=== PATIENT | female | born 1990 | race Caucasian/White ===

== ENCOUNTER 2017-04-28 22:53 | Emergency (ER) | payer BC, OTHER ==
[2017-04-28] MEDS ORDERED: SODIUM CHLORIDE 0.9% 500 ML IV STA (23:10)
[2017-04-28 23:29] LABS: Basophils # (A) 0.1 k/uL (0-0.2); Basophils % (A) 1 %; CH 31.8; CHCM 34.7; Eosinophils # (A) 0.1 k/uL (0-0.7); Eosinophils % (A) 1 %; HCT 42.3 % (34.0-46.0); HDW 2.64; HGB 14.4 gm/dL (11.4-16.0); Luc # (Auto) 0.15; Luc % (Auto) 2; Lymphocytes # (A) 3.2 k/uL (1.0-4.8); Lymphocytes % (A) 41 %; MCH 31.3 pg (25.0-35.0); MCV 91.9 fL (80.0-100.0); Monocytes # (A) 0.3 k/uL (0-1.0); Monocytes % (A) 4 %; Neutrophils # (A) 3.9 k/uL (1.3-7.7); Neutrophils % (A) 51 %; RDW 13.1 % (11.5-15.5); WBC 7.7 k/uL (3.8-10.6); WBC (Perox) 7.29
[2017-04-28 23:34] LABS: ALT 42 U/L (9-52); AST 29 U/L (14-36); Alkaline Phosphatase 105 U/L (38-126); Anion Gap 13 mmol/L; Blood Urea Nitrogen 10 mg/dL (7-17); Calcium 9.5 mg/dL (8.4-10.2); Carbon Dioxide 20 mmol/L (22-30); Chloride 107 mmol/L (98-107); Glucose 94 mg/dL (74-99); Non-African American GFR(MDRD) >60 (>60 ml/min/1.73 sqM); Potassium 4.3 mmol/L (3.5-5.1); Sodium 140 mmol/L (137-145); Total Bilirubin 0.5 mg/dL (0.2-1.3)
[2017-04-28 23:35] LABS: Partial Thromboplastin Time 26.6 sec (22.0-30.0); Prothrombin Time 10.5 sec (9.0-12.0)
[2017-04-28 23:42] LABS: Creatine Kinase 118 U/L (30-135)
[2017-04-28 23:56] LABS: Creatine Kinase MB 1.3 ng/mL (0.0-2.4); Troponin I <0.012 ng/mL (0.000-0.034)
--- NOTE | 2017-04-29 00:05 | ED ---
General Adult HPI - General Chief complaint: Chest Pain Stated complaint: Chest Pain Time Seen by Provider: 04/28/17 22:57 Source: patient, EMS Mode of arrival: EMS Limitations: no limitations - History of Present Illness Initial comments: 26-year-old female patient presents to emergency department today with complaints of shortness of breath, chest pressure, and vaginal bleeding. Patient is postop day #12 after having a delivery. Patient states that up until today she has been having dark red to brown vaginal discharge. She states today the bleeding has been bright red, states that just prior to arrival she did have a large gush of blood with some clots present in the toilet. Patient states that she is unchanged her pad 3 times today however. Patient states that shortness of breath started also just prior to arrival around the same time that she had the blood output. Patient denies any significant abdominal pain, states that the surface is tender due to receiving heparin injections. Patient has a factor 5 deficiency. Patient states she has never had blood clots resolve however her close relatives have had numerous blood clots. Patient denies any headache, weakness, dizziness, nausea, vomiting , constipation, diarrhea, dysuria, urinary urgency or urinary frequency. Patient is breast-feeding. Patient denies any concerns with her incision site. Patient denies any foul odor from the vaginal discharge. Denies any fever or chills. - Related Data Home Medications Medication Instructions Recorded Confirmed Acetaminophen Tab [Tylenol Tab] 500 mg PO Q6H PRN 04/28/17 04/28/17 HYDROcodone/APAP 5-325MG [[place] 1 tab PO Q6HR PRN 04/28/17 04/28/17 5-325] Heparin Sodium,Porcine [Heparin 7,500 unit SQ BID 04/28/17 04/28/17 Sodium] Ibuprofen [Motrin] 400 mg PO Q6HR PRN 04/28/17 04/28/17 [id number] Acid 1 cap PO DAILY 04/28/17 04/28/17 [-U Capsule (formulary)] Sertraline [Zoloft] 100 mg PO DAILY 04/28/17 04/28/17 Allergies Allergy/AdvReac Type Severity Reaction Status Date / Time cefaclor [From Ceclor] Allergy Unknown Unknown Verified 04/28/17 23:15 amoxicillin [From Augmentin] Allergy Unknown Verified 04/28/17 22:54 clavulanic acid Allergy Unknown Verified 04/28/17 22:54 [From Augmentin] codeine Allergy Rash/Hives Verified 04/28/17 23:15 morphine Allergy Rash/Hives Verified 04/28/17 23:15 Sulfa (Sulfonamide Allergy Unknown Verified 04/28/17 23:15 Antibiotics) Review of Systems ROS Statement: Those systems with pertinent positive or pertinent negative responses have been documented in the HPI. ROS Other: All systems not noted in ROS Statement are negative. 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 Absent: scleral icterus, conjunctival injection, periorbital swelling ENT exam: Present: normal exam, normal oropharynx, mucous membranes moist Neck exam: Present: normal inspection. Absent: tenderness, meningismus, lymphadenopathy Respiratory exam: Present: normal lung sounds bilaterally, other (Tachypneic). Absent: respiratory distress, wheezes, rales, rhonchi, stridor Cardiovascular Exam: Present: regular rate, normal rhythm, normal heart sounds. Absent: systolic murmur, diastolic murmur, rubs, gallop, clicks GI/Abdominal exam: Present: soft, tenderness (Superficial abdominal tenderness related to a bruised upper and injection sites.), normal bowel sounds. Absent: distended, guarding, rebound, rigid External exam: Present: normal external exam. Absent: erythema, swelling, lesions, lacerations, ecchymosis Speculum exam: Present: normal speculum exam, vaginal bleeding (Dark red vaginal bleeding noted. Clot removed, no fresh bright red blood noted no fresh bleeding from cervical os.). Absent: erythema By manual exam: Present: adnexal tenderness, uterine tenderness. Absent: cervical motion tenderness, adnexal mass, uterine enlargement Extremities exam: Present: normal inspection, full ROM, normal capillary refill. Absent: tenderness, pedal edema, joint swelling, calf tenderness Back exam: Present: normal inspection Neurological exam: Present: alert, oriented X3, CN II-XII intact Psychiatric exam: Present: normal affect, normal mood Skin exam: Present: warm, dry, intact, normal color. Absent: rash Course Vital Signs 04/28/17 04/28/17 22:55 23:49 Temperature 97.9 F Pulse Rate 68 76 Respiratory 22 18 Rate Blood Pressure 129/73 128/70 O2 Sat by Pulse 98 99 Oximetry - Reevaluation(s) Reevaluation #1: 04/29/17 01:23 In to perform pelvic examination and speculum exam. Findings documented in the physical exam. Patient is complaining of pain after the exam. Will order [place]. Awaiting CTA results as well as results of the transvaginal ultrasound. EKG Findings - EKG Comments: EKG Findings:: EKG obtained at 2257 reveals normal sinus rhythm with a ventricular rate of 76, [place] interval 160, Q samaritan 80, QT 356, QTC 400. No evidence of ST elevation or depression. Medical Decision Making - Medical Decision Making 26-year-old female patient presented to emergency department for concerns of shortness of breath, chest pressure, and bright red vaginal bleeding. Blood work was performed and showed no acute abnormalities of the elevated d-dimer. CTA of the chest was performed and did not show any pulmonary embolism or other acute process. Ultrasound of the abdomen and pelvis was performed and did show a thickened endometrium and recommended follow-up in about 6-8 weeks. Pelvic and a speculum exam was performed, cervix was closed with a dark brown blood clot noted, blood clot was removed no fresh bleeding noted. Urine has been sent for culture. Patient's symptoms have improved. Patient will be discharged home to follow up with her primary care physician as well as her OB/ CLINICAL COORDINATOR in 1-2 days for recheck. Patient struck her to return for any new, worsening, or concerning symptoms. Patient verbalizes understanding and agrees with this plan. - Lab Data Result diagrams: 04/28/17 22:57 04/28/17 22:57 Lab Results 04/28/17 04/28/17 04/28/17 Range/Units 22:57 22:57 22:57 WBC 7.7 (3.8-10.6) k/uL RBC 4.60 (3.80-5.40) m/uL Hgb 14.4 (11.4-16.0) gm/dL Hct 42.3 (34.0-46.0) % MCV 91.9 (80.0-100.0) fL MCH 31.3 (25.0-35.0) pg MCHC 34.0 (31.0-37.0) g/dL RDW 13.1 (11.5-15.5) % Plt Count 386 (150-450) k/uL Neutrophils % 51 % Lymphocytes % 41 % Monocytes % 4 % Eosinophils % 1 % Basophils % 1 % Neutrophils # 3.9 (1.3-7.7) k/uL Lymphocytes # 3.2 (1.0-4.8) k/uL Monocytes # 0.3 (0-1.0) k/uL Eosinophils # 0.1 (0-0.7) k/uL Basophils # 0.1 (0-0.2) k/uL PT (9.0-12.0) sec INR (<1.2) APTT (22.0-30.0) sec D-Dimer (<0.60) mg/L FEU Sodium 140 (137-145) mmol/L Potassium 4.3 (3.5-5.1) mmol/L Chloride 107 (98-107) mmol/L Carbon Dioxide 20 L (22-30) mmol/L Anion Gap 13 mmol/L BUN 10 (7-17) mg/dL Creatinine 0.60 (0.52-1.04) mg/dL Est GFR (MDRD) Af Amer >60 (>60 ml/min/1.73 sqM) Est GFR (MDRD) Non-Af >60 (>60 ml/min/1.73 sqM) Glucose 94 (74-99) mg/dL Calcium 9.5 (8.4-10.2) mg/dL Magnesium 2.0 (1.6-2.3) mg/dL Total Bilirubin 0.5 (0.2-1.3) mg/dL AST 29 (14-36) U/L ALT 42 (9-52) U/L Alkaline Phosphatase 105 (38-126) U/L Total Creatine Kinase 118 (30-135) U/L CK-MB (CK-2) 1.3 (0.0-2.4) ng/mL CK-MB (CK-2) Rel Index 1.1 Troponin I <0.012 (0.000-0.034) ng/mL NT-Pro-B Natriuret Pep pg/mL Total Protein 7.0 (6.3-8.2) g/dL Albumin 4.0 (3.5-5.0) g/dL Urine Color Urine Appearance (Clear) Urine pH (5.0-8.0) Ur Specific [place] (1.001-1.035) Urine Protein (Negative) Urine Glucose (UA) (Negative) Urine Ketones (Negative) Urine Blood (Negative) Urine Nitrite (Negative) Urine Bilirubin (Negative) Urine Urobilinogen (<2.0) mg/dL Ur Leukocyte Esterase (Negative) Urine RBC (0-5) /hpf Urine WBC (0-5) /hpf Ur Squamous Epith Cells (0-4) /hpf Urine Mucus (None) /hpf 04/28/17 04/28/17 04/29/17 Range/Units 22:57 22:57 00:32 WBC (3.8-10.6) k/uL RBC (3.80-5.40) m/uL Hgb (11.4-16.0) gm/dL Hct (34.0-46.0) % MCV (80.0-100.0) fL MCH (25.0-35.0) pg MCHC (31.0-37.0) g/dL RDW (11.5-15.5) % Plt Count (150-450) k/uL Neutrophils % % Lymphocytes % % Monocytes % % Eosinophils % % Basophils % % Neutrophils # (1.3-7.7) k/uL Lymphocytes # (1.0-4.8) k/uL Monocytes # (0-1.0) k/uL Eosinophils # (0-0.7) k/uL Basophils # (0-0.2) k/uL PT 10.5 (9.0-12.0) sec INR 1.0 (<1.2) APTT 26.6 (22.0-30.0) sec D-Dimer 2.27 H (<0.60) mg/L FEU Sodium (137-145) mmol/L Potassium (3.5-5.1) mmol/L Chloride (98-107) mmol/L Carbon Dioxide (22-30) mmol/L Anion Gap mmol/L BUN (7-17) mg/dL Creatinine (0.52-1.04) mg/dL Est GFR (MDRD) Af Amer (>60 ml/min/1.73 sqM) Est GFR (MDRD) Non-Af (>60 ml/min/1.73 sqM) Glucose (74-99) mg/dL Calcium (8.4-10.2) mg/dL Magnesium (1.6-2.3) mg/dL Total Bilirubin (0.2-1.3) mg/dL AST (14-36) U/L ALT (9-52) U/L Alkaline Phosphatase (38-126) U/L Total Creatine Kinase (30-135) U/L CK-MB (CK-2) (0.0-2.4) ng/mL CK-MB (CK-2) Rel Index Troponin I (0.000-0.034) ng/mL NT-Pro-B Natriuret Pep 14 pg/mL Total Protein (6.3-8.2) g/dL Albumin (3.5-5.0) g/dL Urine Color Yellow Urine Appearance Clear (Clear) Urine pH 8.0 (5.0-8.0) Ur Specific [place] 1.005 (1.001-1.035) Urine Protein Trace H (Negative) Urine Glucose (UA) Negative (Negative) Urine Ketones Negative (Negative) Urine Blood Large H (Negative) Urine Nitrite Negative (Negative) Urine Bilirubin Negative (Negative) Urine Urobilinogen <2.0 (<2.0) mg/dL Ur Leukocyte Esterase Moderate H (Negative) Urine RBC 14 H (0-5) /hpf Urine WBC 22 H (0-5) /hpf Ur Squamous Epith Cells 1 (0-4) /hpf Urine Mucus Rare H (None) /hpf - Radiology Data Radiology results: report reviewed, image reviewed Complete ultrasound of the pelvis transabdominal and transvaginal shows endometrial complex is thickened at 1.7 cm. Cystic appearance of the cervix may represent nabothian cysts. Attention on follow up. No uterine masses. Uterus measures 15.05.98.8 cm. Ovaries are not well seen. Bladder is unremarkable. No adnexal masses. There is small amount of pelvic fluid. Impression by Dr. Wallace shows endometrial complex thickened to 1.7 cm. This is indeterminate but probably benign at this time. Suggest follow up in 6-8 weeks to document stability. New x-ray of the chest shows that the lungs are unremarkable with no consolidation. Pleural spaces are unremarkable with no pneumothorax. Heart is unremarkable no cardia megaly. Mediastinum is unremarkable bones and joints are unremarkable. Impression by Dr. Wallace shows normal chest x-ray. CT of the chest shows that the pulmonary arteries are unremarkable, no pulmonary embolism, aorta shows no acute findings and no thoracic aortic aneurysm. Lungs are unremarkable with no mass and no consolidation. Pleural spaces unremarkable. No significant effusion. No pneumothorax. Heart is unremarkable with no cardiomegaly no significant pericardial effusion. No evidence of RV dysfunction. Bones and joints show no acute fracture no dislocation. Soft tissues are unremarkable lymph nodes are unremarkable no enlarged lymph nodes noted. Impression by Dr. Wallace shows no pulmonary embolism and no other acute disease. Disposition Clinical Impression: Vaginal bleeding, Chest pain Disposition: HOME SELF-CARE Condition: Good Instructions: Chest Pain (ED), Dysfunctional Uterine Bleeding (ED) Additional Instructions: Follow-up with primary care physician as well as [employer] in 1-2 days for recheck. Return immediately for any new, worsening, or concerning symptoms. Referrals: Johnny Enrique MD [Primary Care Provider] - 1-2 days Time of Disposition: 02:33
[2017-04-29] MEDS ORDERED: RX INFO: IV CONTRAST WAS GIVEN 1 EACH MISC MISCELLANE PRN (00:32)
--- NOTE | 2017-04-29 00:43 | XR ---
EXAM: XR Chest, 2 Views CLINICAL HISTORY: Reason: Chest Pain TECHNIQUE: Frontal and lateral views of the chest. COMPARISON: No relevant prior studies available. FINDINGS: Lungs: Unremarkable. No consolidation. Pleural space: Unremarkable. No pneumothorax. Heart: Unremarkable. No cardiomegaly. Mediastinum: Unremarkable. Bones/joints: Unremarkable. IMPRESSION: Normal chest x-rays.
[2017-04-29 01:01] LABS: Appearance,Urine Clear (Clear); Bilirubin,Urine Negative (Negative); Glucose,Urine (UA) Negative (Negative); Ketones,Urine Negative (Negative); Leukocyte Esterase,Urine Moderate (Negative); Mucus,Urine Rare /hpf; Nitrite,Urine Negative (Negative); Particle Count 7216; Protein,Urine Trace (Negative); RBC,Urine 14 /hpf (0-5); Specific Gravity,Urine 1.005 (1.001-1.035); Squamous Epithelial Cell,Urine 1 /hpf (0-4); UA Billing (MACRO vs. MICRO) MICRO; Urobilinogen,Urine <2.0 mg/dL (<2.0); WBC,Urine 22 /hpf (0-5)
--- NOTE | 2017-04-29 01:34 | US ---
EXAM: US Pelvis Complete, Transabdominal US Pelvis, Transvaginal CLINICAL HISTORY: Reason: Pain TECHNIQUE: Real-time transabdominal and transvaginal pelvic ultrasound (complete) with image documentation. Transvaginal imaging was used for better evaluation of the endometrium and adnexa. COMPARISON: No relevant prior studies available. FINDINGS: Uterus/cervix: Endometrial complex is thickened at 1.7 cm. Cystic appearance of the cervix may represent nabothian cysts. Attention on followup. No uterine masses. Uterus measures 15.0 x 5.9 x 8.8 cm. Right ovary: Ovaries are not well seen. Bladder is unremarkable. No adnexal masses. Left ovary: See above. Free fluid: Very small amount of free pelvic fluid. Bladder: See above. IMPRESSION: Endometrial complex thickened to 1.7 cm. This is indeterminate but probably benign this time. Suggest followup in 6-8 weeks to document stability.
[2017-04-29] MEDS ORDERED: HYDROcodone/APAP 7.5-325MG 1 EACH TAB PO ONE (01:41)
--- NOTE | 2017-04-29 02:22 | CT ---
EXAM: CT Angiography Chest With Intravenous Contrast CLINICAL HISTORY: Reason: Pain TECHNIQUE: Axial computed tomographic angiography images of the chest with intravenous contrast using pulmonary embolism protocol. CTDI is 89.80 mGy and DLP is 365.0 mGy-cm. This CT exam was performed using one or more of the following dose reduction techniques: automated exposure control, adjustment of the mA and/or kV according to patient size, and/or use of iterative reconstruction technique. MIP reconstructed images were created and reviewed. COMPARISON: No relevant prior studies available. FINDINGS: Pulmonary arteries: Unremarkable. No pulmonary embolism. Aorta: No acute findings. No thoracic aortic aneurysm. Lungs: Unremarkable. No mass. No consolidation. Pleural space: Unremarkable. No significant effusion. No pneumothorax. Heart: Unremarkable. No cardiomegaly. No significant pericardial effusion. No evidence of RV dysfunction. Bones/joints: No acute fracture. No dislocation. Soft tissues: Unremarkable. Lymph nodes: Unremarkable. No enlarged lymph nodes. IMPRESSION: No pulmonary embolism. No other acute disease.
[2017-04-29 02:40] VITALS: BP 126/63; PULSE 80; RESP 16; TEMP 98
== END 2017-04-29 02:40 | disposition home or self-care (01) ==
LOC: EC 22:53
DX: O72.2 Delayed and secondary postpartum hemorrhage (principal); O99.89 Other specified diseases and conditions complicating pregnancy, childbirth and the puerperium; R07.9 Chest pain, unspecified; F31.9 Bipolar disorder, unspecified; F41.9 Anxiety disorder, unspecified; Z88.1 Allergy status to other antibiotic agents; Z88.0 Allergy status to penicillin; Z88.5 Allergy status to narcotic agent; Z88.2 Allergy status to sulfonamides; Z79.899 Other long term (current) drug therapy
CPT/HCPCS: 99285 ×2; 96360 ×2; 96361 ×3; 36415; 93005; 85379; 83880; 80053; 82550; 82553; 83735; 84484; 85025; 85610; 85730; 81001; 87086; 71020; 76856; 76830; 71275; Q9967

== ENCOUNTER 2017-06-10 05:32 | Emergency (ER) | payer BC, OTHER ==
[2017-06-10 05:40] VITALS: RESP 18; TEMP 97.1
[2017-06-10] MEDS ORDERED: SODIUM CHLORIDE 0.9% 1,000 ML IV STA (06:38)
[2017-06-10] MEDS ORDERED: FLUCONAZOLE 150 MG TAB PO STA (06:46)
--- NOTE | 2017-06-10 06:49 | ED ---
General Adult HPI - General Chief complaint: Abdominal Pain Stated complaint: ABD pain Time Seen by Provider: 06/10/17 06:00 Source: patient, family, RN notes reviewed, old records reviewed Mode of arrival: ambulatory Limitations: no limitations - History of Present Illness Initial comments: This is a 18-year-old female tear with nonspecific complaints. Way. . 50, changes in bowel habits, patient has no specific medical history otherwise. Patient did give about 2 months ago. Since then patient has had some ER visits for different complaints with significant workups. She states she was at work today and noticed some discharge from her vagina was concerning, concerning for infection tunings may be a yeast infection. Patient denies sexual activity. Denies pain with urination. No recent fevers no abdominal pain no nausea vomiting - Related Data Home Medications Medication Instructions Recorded Confirmed Acetaminophen Tab [Tylenol Tab] 500 mg PO Q6H PRN 04/28/17 06/10/17 Ibuprofen [Motrin] 400 mg PO Q6HR PRN 04/28/17 06/10/17 Uwm-Pryp-[id number] Acid 1 cap PO DAILY 04/28/17 06/10/17 [-U Capsule (formulary)] Sertraline [Zoloft] 100 mg PO DAILY 04/28/17 06/10/17 Allergies Allergy/AdvReac Type Severity Reaction Status Date / Time cefaclor [From Ceclor] Allergy Unknown Unknown Verified 06/10/17 05:40 amoxicillin [From Augmentin] Allergy Unknown Verified 06/10/17 05:40 clavulanic acid Allergy Unknown Verified 06/10/17 05:40 [From Augmentin] codeine Allergy Rash/Hives Verified 06/10/17 05:40 morphine Allergy Rash/Hives Verified 06/10/17 05:40 Sulfa (Sulfonamide Allergy Unknown Verified 06/10/17 05:40 Antibiotics) Review of Systems ROS Statement: Those systems with pertinent positive or pertinent negative responses have been documented in the HPI. ROS Other: All systems not noted in ROS Statement are negative. 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 Absent: scleral icterus, conjunctival injection, periorbital swelling ENT exam: Present: normal exam, mucous membranes moist Neck exam: Present: normal inspection. Absent: tenderness, meningismus, lymphadenopathy Respiratory exam: Present: normal lung sounds bilaterally. Absent: respiratory distress, wheezes, rales, rhonchi, stridor Cardiovascular Exam: Present: regular rate, normal rhythm, normal heart sounds. Absent: systolic murmur, diastolic murmur, rubs, gallop, clicks GI/Abdominal exam: Present: soft, normal bowel sounds. Absent: distended, tenderness, guarding, rebound, rigid Extremities exam: Present: normal inspection, full ROM, normal capillary refill. Absent: tenderness, pedal edema, joint swelling, calf tenderness Back exam: Present: normal inspection Neurological exam: Present: alert, oriented X3, CN II-XII intact Psychiatric exam: Present: normal affect, normal mood Skin exam: Present: warm, dry, intact, normal color. Absent: rash Course Vital Signs 06/10/17 05:34 Temperature 97.1 F L Pulse Rate 75 Respiratory 18 Rate Blood Pressure 126/90 O2 Sat by Pulse 97 Oximetry - Reevaluation(s) Reevaluation #1: 06/10/17 06:47 Patient remains relatively symptomatic throughout ED stay Medical Decision Making - Medical Decision Making 26th female in the ER for evaluation. Patient presents to ER for evaluation of abdominal pain, discharge. No vaginal bleeding at this time, no abdominal pain on exam. Laboratory normal patient can be discharged home Disposition Clinical Impression: Abdominal pain Disposition: HOME SELF-CARE Condition: Good Referrals: Johnny Enrique MD [Primary Care Provider] - 1-2 days
[2017-06-10 07:01] LABS: Basophils # (A) 0.1 k/uL (0-0.2); Basophils % (A) 1 %; CH 30.9; CHCM 33.9; Eosinophils # (A) 0.3 k/uL (0-0.7); Eosinophils % (A) 3 %; HDW 2.77; HGB 12.6 gm/dL (11.4-16.0); Luc # (Auto) 0.15; Luc % (Auto) 2; Lymphocytes # (A) 2.8 k/uL (1.0-4.8); Lymphocytes % (A) 30 %; MCH 31.1 pg (25.0-35.0); MCHC 33.9 g/dL (31.0-37.0); MCV 91.5 fL (80.0-100.0); Mean Platelet Volume 6.6; Monocytes # (A) 0.5 k/uL (0-1.0); Monocytes % (A) 5 %; Neutrophils # (A) 5.8 k/uL (1.3-7.7); Neutrophils % (A) 60 %; RBC 4.05 m/uL (3.80-5.40); RDW 13.5 % (11.5-15.5); WBC 9.6 k/uL (3.8-10.6); WBC (Perox) 9.62
[2017-06-10 07:10] LABS: ALT 41 U/L (9-52); AST 25 U/L (14-36); Alkaline Phosphatase 75 U/L (38-126); Anion Gap 13 mmol/L; Blood Urea Nitrogen 13 mg/dL (7-17); Calcium 9.5 mg/dL (8.4-10.2); Carbon Dioxide 22 mmol/L (22-30); Chloride 108 mmol/L (98-107); Glucose 87 mg/dL (74-99); INR 1.1 (<1.2); Magnesium 1.9 mg/dL (1.6-2.3); Non-African American GFR(MDRD) >60 (>60 ml/min/1.73 sqM); Partial Thromboplastin Time 25.2 sec (22.0-30.0); Phosphorous 3.7 mg/dL (2.5-4.5); Potassium 3.7 mmol/L (3.5-5.1); Prothrombin Time 10.7 sec (9.0-12.0); Sodium 143 mmol/L (137-145); Total Bilirubin 0.3 mg/dL (0.2-1.3); Total Protein 7.3 g/dL (6.3-8.2)
[2017-06-10 07:36] LABS: Creatine Kinase MB 1.6 ng/mL (0.0-2.4)
[2017-06-10 08:01] LABS: Appearance,Urine Turbid (Clear); Bacteria,Urine Moderate /hpf; Bilirubin,Urine Negative (Negative); Glucose,Urine (UA) Negative (Negative); Ketones,Urine Negative (Negative); Leukocyte Esterase,Urine Large (Negative); Mucus,Urine Moderate /hpf; Nitrite,Urine Negative (Negative); PH, Urine 5.5 (5.0-8.0); Particle Count 60845; Protein,Urine 1+ (Negative); RBC,Urine 11 /hpf (0-5); Specific Gravity,Urine 1.026 (1.001-1.035); Squamous Epithelial Cell,Urine 131 /hpf (0-4); UA Billing (MACRO vs. MICRO) MICRO; Urobilinogen,Urine <2.0 mg/dL (<2.0); WBC,Urine 57 /hpf (0-5)
[2017-06-10 08:38] VITALS: BP 122/67; PULSE 77
== END 2017-06-10 08:35 | disposition home or self-care (01) ==
LOC: EC 05:32
DX: R10.9 Unspecified abdominal pain (principal); F31.9 Bipolar disorder, unspecified; F41.9 Anxiety disorder, unspecified; Z79.899 Other long term (current) drug therapy; Z88.2 Allergy status to sulfonamides; Z88.5 Allergy status to narcotic agent; Z88.0 Allergy status to penicillin; Z88.1 Allergy status to other antibiotic agents
CPT/HCPCS: 36415; 80053; 81001; 82550; 82553; 83735; 84100; 85025; 85610; 85730; 87086; 99284

== ENCOUNTER → 2018-02-20 | Outpatient (CLI) | payer OTHER ==
--- NOTE | 2018-02-20 15:02 | XR ---
EXAMINATION TYPE: XR wrist complete LT DATE OF EXAM: 02/20/2018 COMPARISON: NONE HISTORY: Lifting injury, radial styloid tenosynovitis TECHNIQUE: 4 view left wrist FINDINGS: No acute fractures are evident. Soft tissues are normal. Joint spaces are preserved. Nuclear medicine bone scan can be performed if there is pain at the anatomic snuff box. Follow-up exa ms can be performed 7-10 days from acute trauma for continued pain. IMPRESSION: 1. Normal 4 view left wrist
== END | disposition home or self-care (01) ==
LOC: RADXRMAIN 14:33
PROVIDERS: ATTEND Emergency Medicine
DX: M65.4 Radial styloid tenosynovitis [de Quervain] (principal)

== ENCOUNTER 2023-02-10 22:10 | Emergency (ER) | payer BC, OTHER ==
--- NOTE | 2023-02-10 23:15 | ED ---
General Adult HPI - General Chief complaint: Extremity Injury, Lower Stated complaint: Right Ankle Injury Time Seen by Provider: 02/10/23 22:55 Source: patient, RN notes reviewed Mode of arrival: ambulatory Limitations: no limitations - History of Present Illness Initial comments: 32-year-old female with a past medical history significant for factor V Leiden presents to the emergency department with a chief complaint of right ankle pain. Patient reports that she was wrestling with her brother earlier when she heard a pop to her right ankle. She is complaining of worsening pain and increased swelling to the area. She denies any numbness, tingling, weakness in the extremity. She denies any anticoagulant use. - Related Data Home Medications Medication Instructions Recorded Confirmed Acetaminophen Tab [Tylenol Tab] 500 mg PO Q6H PRN 04/28/17 06/10/17 Hll-Yail-Adlrf Acid 1 cap PO DAILY 04/28/17 06/10/17 [-U Capsule (formulary)] Sertraline [Zoloft] 100 mg PO DAILY 04/28/17 06/10/17 Allergies Allergy/AdvReac Type Severity Reaction Status Date / Time cefaclor [From Ceclor] Allergy Unknown Unknown Verified 02/10/23 22:46 amoxicillin [From Augmentin] Allergy Unknown Verified 02/10/23 22:46 clavulanic acid Allergy Unknown Verified 02/10/23 22:46 [From Augmentin] codeine Allergy Rash/Hives Verified 02/10/23 22:46 lactose Allergy Nausea & Verified 02/10/23 22:47 Vomiting & Diarrhea morphine Allergy Rash/Hives Verified 02/10/23 22:46 Penicillins Allergy Rash/Hives Verified 02/10/23 22:47 Sulfa (Sulfonamide Allergy Unknown Verified 02/10/23 22:46 Antibiotics) Review of Systems ROS Statement: Those systems with pertinent positive or pertinent negative responses have been documented in the HPI. ROS Other: All systems not noted in ROS Statement are negative. Past Medical History Past Medical History: No Reported History Additional Past Medical History / Comment(s): Factor 5 syndrome History of Any Multi-Drug Resistant Organisms: None Reported Past Surgical History: Section, Tubal Ligation Additional Past Surgical History / Comment(s): "Polyp and adenoid removal from sinuses" Past Psychological History: Anxiety, Bipolar Smoking Status: Never smoker Past Alcohol Use History: None Reported Past Drug Use History: Marijuana General Exam - General Exam Comments Initial Comments: General: Alert, in no acute distress Head: atraumatic normocephalic. Eyes PERRL, EOMI intact, mucous membranes moist Respiratory: Lungs clear to auscultation bilaterally Cardiovascular: Heart rate regular rate and rhythm Abdominal: Soft without guarding or rebound Extremities: Normal inspection with full range of motion and normal capillary refill, right ankle with mild swelling to lateral malleolus region 2+ DP/PT pulses limited range of motion secondary to pain no crepitus Neuroogic: alert and oriented 3, CN II-XII intact, able to ambulate with steady gait Skin: warm dry and intact with normal color Limitations: no limitations Course Vital Signs 02/10/23 02/11/23 22:44 02:09 Temperature 98.9 F 98.0 F Pulse Rate 79 71 Respiratory 20 18 Rate Blood Pressure 148/86 129/66 O2 Sat by Pulse 99 99 Oximetry Medical Decision Making - Medical Decision Making Was pt. sent in by a medical professional or institution (, PA, SPOUT LINER, urgent care, hospital, or [facility]...) When possible be specific @ -[No] Did you speak to anyone other than the patient for history (EMS, parent, family, police, friend...)? What history was obtained from this source @ -[No] Did you review nursing and triage notes (agree or disagree)? Why? @ -[I reviewed and agree with nursing and triage notes] Were old charts reviewed (outside hosp., previous admission, EMS record, old EKG, old radiological studies, urgent care reports/EKG's, [facility] records)? Report findings @ -[No old charts were reviewed] Differential Diagnosis (chest pain, altered mental status, abdominal pain women, abdominal pain men, vaginal bleeding, weakness, fever, dyspnea, syncope, headache, dizziness, GI bleed, back pain, seizure, CVA, palpatations, mental health, musculoskeletal)? @ -[not applicable] EKG interpreted by me (3pts min.). @ -[As above] X-rays interpreted by me (1pt min.). @ -Right ankle x-ray reveals small avulsion fracture to the anterior distal tibia CT interpreted by me (1pt min.). @ -[None done] U/S interpreted by me (1pt. min.). @ -[None done] What testing was considered but not performed or refused? (CT, X-rays, U/S, labs)? Why? @ -[None] What meds were considered but not given or refused? Why? @ -[None] Did you discuss the management of the patient with other professionals (professionals i.e. , PA, SPOUT LINER, lab, RT, psych nurse, social sciences research scientist, battery tester field, teacher, chairman & chief executive officer, manager of case)? Give summary @ -[No] Was smoking cessation discussed for >3mins.? @ -[No] Was critical care preformed (if so, how long)? @ -[No] Were there social determinants of health that impacted care today? How? (Home lessness, low income, unemployed, alcoholism, drug addiction, transportation, low edu. Level, literacy, decrease access to med. care, nursing home, rehab)? @ -[No] Was there de-escalation of care discussed even if they declined (Discuss DNR or withdrawal of care, Hospice)? DNR status @ -[No] What co-morbidities impacted this encounter? (DM, HTN, Smoking, COPD, CAD, Cancer, CVA, ARF, Chemo, Hep., AIDS, mental health diagnosis, sleep apnea, morbid obesity)? @ -[None] Was patient admitted / discharged? Hospital course, mention meds given and route, prescriptions, significant lab abnormalities, going to OR and other pertinent info. @ Discharged. This is a 32-year-old female presents to the emergency department with right ankle pain. Patient had a thorough history and physical exam performed while in the ED. Physical exam is essentially unremarkable heart rate regular rate and rhythm, lung sounds clear to auscultation bilaterally abdomen, abdomen soft and nontender. right ankle without edema, erythema, non- teender. 2+ DP/PT pulses. Patient had lab work and imaging performed which is essentially unremarkable. I discussed results in detail with the patient verbalized understanding and all questions were addressed. She was given Toradol and Lidoderm patch with symptomatic relief on the ED. Return precautions were discussed at length. Patient discharged in stable condition. Case discussed with KAROLINE Smith who agrees with plan of care Undiagnosed new problem with uncertain prognosis? @ -[No] Drug Therapy requiring intensive monitoring for toxicity (Heparin, Nitro, Insulin, Cardizem)? @ -[No] Were any procedures done? @ -[No] Diagnosis/symptom? @ -right ankle pain Acute, or Chronic, or Acute on Chronic? @ -acute Uncomplicated (without systemic symptoms) or Complicated (systemic symptoms)? @ -uncomplicated Side effects of treatment? @ -[No] Exacerbation, Progression, or Severe Exacerbation? @ -[No] Poses a threat to life or bodily function? How? (Chest pain, [place], [place], pneumonia, PE, COPD, DKA, ARF, appy, cholecystitis, CVA, Diverticulitis, Homicidal, Suicidal, threat to staff... and all critical care pts) @ -low likelihood Disposition Clinical Impression: Ankle sprain Disposition: HOME SELF-CARE Condition: Stable Additional Instructions: Please return to the nearest emergency department symptoms worsen or persist Is patient prescribed a controlled substance at d/c from ED?: No Referrals: Johnny Enrique MD [Primary Care Provider] - 1-2 days Teagan Wang DO [Doctor of Osteopathic Medicine] - 1-2 days Time of Disposition: 03:04
[2023-02-10] MEDS ORDERED: KETOROLAC 15 MG/ML 1 ML VIAL IM STA (23:57)
--- NOTE | 2023-02-11 01:27 | XR ---
EXAM: XR Right Ankle Complete, 3 or More Views CLINICAL HISTORY: ITS.REASON XR Reason: right ankle pain TECHNIQUE: Frontal, lateral and oblique views of the right ankle. COMPARISON: No relevant prior studies available. FINDINGS: Bones/joints: On the lateral view, small opacity adjacent to the anterior distal tibia. No dislocation. Mild calcaneal enthesopathy at the Achilles attachment. Soft tissues: Mild anterior and lateral ankle soft tissue swelling. IMPRESSION: 1. Mild anterior and lateral ankle soft tissue swelling. 2. On the lateral view, small opacity adjacent to the anterior distal tibia. Possible avulsion fracture.
[2023-02-11] MEDS ORDERED: ACET/COD 300 MG/30 MG STARTER PACK 6 TAB BTL PO STA (01:52)
[2023-02-11 02:11] VITALS: BP 129/66; PULSE 71; RESP 18; TEMP 98
== END 2023-02-11 02:11 | disposition home or self-care (01) ==
LOC: EC 22:10
DX: S93.401A Sprain of unspecified ligament of right ankle, initial encounter (principal); F41.9 Anxiety disorder, unspecified; F31.9 Bipolar disorder, unspecified; F12.90 Cannabis use, unspecified, uncomplicated; Z79.899 Other long term (current) drug therapy; Z88.0 Allergy status to penicillin; Z88.6 Allergy status to analgesic agent; Z88.5 Allergy status to narcotic agent; Z88.2 Allergy status to sulfonamides; Z91.011 Allergy to milk products; Z88.8 Allergy status to other drugs, medicaments and biological substances; X58.XXXA Exposure to other specified factors, initial encounter; Y93.72 Activity, wrestling
CPT/HCPCS: 73610; 99284; 96372; J1885

== ENCOUNTER → 2023-02-14 | Outpatient (CLI) | payer OTHER ==
--- NOTE | 2023-02-15 08:50 | XR ---
EXAMINATION TYPE: XR tibia fibula 2 views RT, XR ankle complete 3 views RT DATE OF EXAM: 02/14/2023 COMPARISON: NONE HISTORY: 32-year-old female T1 4.8XXA, right ankle pain FINDINGS: Tibia/fibula: No acute fracture of the more proximal to mid tibia or fibula seen. Ankle: There is subtle lucency involving the inferior tip of the medial malleolus. Ankle mortise is otherwis e congruent with preservation of the distal tibiofibular overlap. Questionable subtle lucency posteri or malleolus versus projectional artifact. Subtalar joint aligned. Talar dome intact. Smooth delineat ion to the Achilles tendon. IMPRESSION: 1. Tibia/fibula: No acute osseous abnormality seen. 2. Ankle: Subtle lucencies involving the inferior tip of the medial malleolus. Some irregularity also noted along the posterior malleolus on the lateral view. Unable to exclude subtle nondisplaced fract ures at both of these sites. Correlate as to the mechanism of patient's injury and for any point tend erness here. Recommend further orthopedic evaluation.
== END | disposition home or self-care (01) ==
LOC: RADXRMAIN 16:55
PROVIDERS: ATTEND Physician Assistant
DX: M25.571 Pain in right ankle and joints of right foot (principal); T14.8XXA Other injury of unspecified body region, initial encounter; Y99.9 Unspecified external cause status